=== PATIENT | female | born 1985 | race Asian ===

== ENCOUNTER 2021-02-08 05:39 | Emergency (ER) | payer OTHER ==
[~2021-02-08] VITALS: Ht 154.9 cm; Wt 76.1 kg
--- NOTE | 2021-02-08 06:05 | NUR ---
Pt states having left sided CP while working upstairs. Pt states she had nausea, vomited once, and felt better. Pt states the pain remains in her left chest. Pt states she has a hx of GERD, but this feels different. EKg done in triage, pt to room, in gown, on monitor. Physician at bedside. Will monitor.
[2021-02-08 06:32] LABS: BASOPHILS % (AUTO) 1 % (0-1); EOSINOPHILS % (AUTO) 1 % (1-7); LYMPHOCYTES % (AUTO) 27 % (22-44); MEAN CORPUSCULAR HEMOGLOBIN 29.6 pg (27.0-34.8); MEAN CORPUSCULAR HGB CONC 33.2 g/dL (32.4-35.8); MEAN PLATELET VOLUME 9.2 fL (7.4-10.4); MONOCYTES % (AUTO) 8 % (2-9); NEUTROPHILS % (AUTO) 63 % (42-75); PLATELET COUNT 316 x10^3/uL (130-400); RED BLOOD COUNT 4.86 x10^6/uL (3.82-5.3)
[2021-02-08 06:34] LABS: MD NO
[2021-02-08 06:44] LABS: ALANINE AMINOTRANSFERASE 119 U/L (12-78); ALBUMIN 3.8 g/dL (3.4-5.0); ANION GAP 7 mmol/L (5-15); CHLORIDE 103 mmol/L (98-107); CHOLESTEROL, TOTAL 179 mg/dL (140-239); CREATININE 0.74 mg/dL (0.55-1.02)
[2021-02-08 06:49] LABS: ALKALINE PHOSPHATASE 99 U/L (45-117); BILIRUBIN,TOTAL 0.2 mg/dL (0.2-1.0); CHOL/HDL RATIO 2.4; HDL CHOL % 41 % (28-40); HDL CHOLESTEROL (DIRECT) 74 mg/dL (40-60); LDL CHOLESTEROL,CALCULATED 84 mg/dL (54-169); LDL/HDL RATIO 1.1 (0.5-3.0); TOTAL PROTEIN 8.3 g/dL (6.4-8.2); TRIGLYCERIDES 105 mg/dL (50-200); TROPONIN I < 0.015 ng/mL (0.000-0.045); VLDL CHOLESTEROL 21 mg/dL (0-25)
--- NOTE | 2021-02-08 06:53 | NUR ---
TOOK REPORT FROM MOHSEN DUNNE, ASSUME CARE AT THIS TIME.
[2021-02-08] MEDS ORDERED: ACETAMINOPHEN 325 MG TABLET PO ONE (07:30)
[2021-02-08 07:51] VITALS: BP 124/74
== END 2021-02-08 07:53 | disposition home or self-care (01) ==
LOC: ED 06:45
DX: R07.89 Other chest pain (principal); R00.0 Tachycardia, unspecified; R11.2 Nausea with vomiting, unspecified; R51.9 Headache, unspecified
CPT/HCPCS: 36415; 80053; 80061; 83036; 84484; 84703; 85025; 93005; 99284